=== PATIENT | female | born 1955 | race Caucasian/White ===

== ENCOUNTER → 2018-10-09 | Outpatient (CLI) | payer OTHER ==
[~2018-10-09] VITALS: Ht 165.1 cm; Wt 78.0 kg
[~2018-10-09] MED LIST: ASPIR 8181 M1 PO; CALCIUM-MAGNES1 EAC2 PO; CELEXA20 MG PO; CENTRUM SILVER1 EAC4 PO; COZAAR 50 MG TA50 M1 PO; ESTRADIOL 1 MG T1 M1 PO; FISH OIL 1,001000 M2 PO; FOLIC ACID1 MG PO; OMEPRAZOLE40 MG PO; POTASSIUM GLUCONATE; TRAMADOL 50 MG50 MG PO; VITAMIN C WIT1000 MG PO; XARELTO20 MG PO
[2018-10-09 09:49] LABS: HEMATOCRIT 35.7 % (37.0-47.0); HEMOGLOBIN 11.8 gm/dL (12.0-15.0); MCH 30.2 pg (26.0-34.0); MCV 91.6 fL (80.0-100.0); MPV 8.2 fl. (7.2-11.1); RBC 3.9 mil/uL (4.20-5.00); RDW-CV 14.1 % (10.5-14.5); WBC 4.7 thou/uL (4.0-11.0)
[2018-10-09 09:55] LABS: CALCIUM 9.3 mg/dL (8.5-10.1); POTASSIUM 3.7 mmol/L (3.5-5.1)
[2018-10-09 10:10] LABS: PROTIME 10.7 Seconds (9.20-11.50)
[2018-10-09 12:20] VITALS: BP 116/65
[2018-10-09 12:33] VITALS: BP 114/61
[2018-10-09 12:47] VITALS: BP 121/61
[2018-10-09 13:00] VITALS: BP 121/87
--- NOTE | 2018-10-09 13:15 | EKG ---
[place] [address] ELECTROCARDIOGRAM REPORT Name: CHARMAINEDAYANARA Room: [facility]#: [id number] Admission: 10/09/18 Attend Phys: Edenilson Cronin MD, F Discharge: Date of : 51 Report #: [id number] THIS REPORT FOR: //name// [facility] Test Date: 2018-10-09 Test Time: 09:54:42 Pat Name: DAYANARA MONTANO Department: Room: Gender: F Manager Philosophy: : 1955 Requested By: Edenilson Cronin Order Number: [id number] Bean MD: Edenilson Cronin Measurements Intervals [place] Rate: 70 P: -87 VT: 123 QRS: -21 QRSD: 101 T: -1 QT: 456 QTc: 493 Interpretive Statements atrial tachycardia Borderline left axis deviation Abnormal R-wave progression, early transition Abnormal T, consider ischemia, anterior leads No previous ECG available for comparison Electronically Signed On 10-09-2018 13:15:29 CDT by Edenilson Cronin [email or web address] <ELECTRONICALLY SIGNED> By: Edenilson Cronin MD, [facility] 10/09/18 1315 [id number] Edenilson Cronin MD, FAC /EPI
[2018-10-09 13:30] VITALS: BP 120/70
[2018-10-09 14:00] VITALS: BP 121/59
--- NOTE | 2018-10-09 14:23 | EKG ---
[place] [address] ELECTROCARDIOGRAM REPORT Name: DAYANARA MONTANO Room: [facility]#: [id number] Admission: 10/09/18 Attend Phys: Edenilson Cronin MD, F Discharge: Date of : 51 Report #: [id number] THIS REPORT FOR: //name// [facility] Test Date: 2018-10-09 Test Time: 13:13:49 Pat Name: DAYANARA MONTANO Department: Room: Gender: F [employer]: : 1955 Requested By: Edenilson Cronin Order Number: [id number] Bean MD: Edenilson Cronin Measurements Intervals [place] Rate: 74 P: AK: QRS: -33 QRSD: 118 T: -24 QT: 447 QTc: 496 Interpretive Statements Afib/flut and V-paced complexes No further rhythm analysis attempted due to paced rhythm Incomplete right bundle branch block Compared to ECG 10/09/2018 09:54:42 ventricular paced beats noted Electronically Signed On 10-09-2018 14:23:28 CDT by Edenilson Cronin [email or web address] <ELECTRONICALLY SIGNED> By: Edenilson Cronin MD, [facility] 10/09/18 1423 1313 1313 Edenilson Cronin MD, [facility] /EPI
--- NOTE | 2018-10-09 16:40 | CARD ---
[address] [address] CARDIAC CATH REPORT Name: DAYANARA MONTANO Room: [facility] Miller#: [id number] Admission: 10/09/18 Attend Phys: Edenilson Cronin MD, F Discharge: Date of : 51 Report #: [id number] THIS REPORT FOR: //name// APPROVED REPORT Study performed: 10/09/2018 10:00:16 Patient Status: Out-Patient Room #: Event Personnel: Dr Cronin Exam: Insertion of Single Chamber Permanent Pacemaker Indications: Sick Sinus Syndrome/Tachy Ulises Syndrome The patient is a 63 year-old female with a history of Dyspnea. Patient Info Anticoagulant Therapy: xarelto Conscious Sedation Start time: 10:28 End Time: 11:32 Fentanyl 50.0 mcg Versed 2.0 mg Implanted Devices: permanent single chamber mri compatible pacemaker generator and lead Procedure The patient underwent informed consent. We discussed the details of the procedure including the risks, which include, but not limited to bleeding, infection, vascular damage, cardiac perforation, and pneumothorax. She understood these risks and was willing to proceed. As such, she was brought to the EP/Cardiac Catheterization laboratory in a fasting and sedated state and prepped and draped in a sterile fashion, received IV antibiotics prior to initiation of the procedure and a venogram was performed showing patency of the left axillary vein. The patient underwent conscious sedation, with no related complications. The patient was brought to the EP/Cardiac Catheterization laboratory and the left chest and shoulder were prepped and draped in a sterile manner. During this case, Fluoroscopy and low osmolar contrast were used for imaging. The left subclavian region was infiltrated with 2% Lidocaine subcutaneous anesthesia. A transverse incision was made in the [place] [address] CARDIAC CATH REPORT Name: DAYANARA MONTANO Room: [facility]#: [id number] Admission: 10/09/18 Attend Phys: Edenilson Cronin MD, F Discharge: Date of : 51 Report #: [id number] The subcutaneous pocket was formed via blunt dissection. Percutaneous venous access was achieved and an introducer sheath was inserted into the left Subclavian vein. Through the introducer sheaths the ventricular lead wire was positioned in the right atrial appendage and right ventricular apex respectively. Utilizing fluoroscopic guidance, the ventricular lead wire was advanced over the wires and positioned in the right atria and right ventricle respectively. Capturing and sensing thresholds were verified. Electrode Parameters R Wave: 28 mv Ventricular Threshold: 0.6v @ 0.4 ms Ventricular Resistance: 400 ohm Single Chamber The ventricular lead was attached to the appropriate receptacle on the pulse generator and set screws firmly tightened to insure adequate contact and stability. The lead and pulse generator were placed into the subcutaneous pocket. Sharp and sponge counts were confirmed to be correct. At this time the pocket was closed subcutaneously with a 0 Vicryl and the skin was closed with a 4.0 Vicryl. The operative site was dressed in sterile fashion with skin affix and the patient was transferred to the floor in stable condition. Complications The patient tolerated the procedure well and there were no complications associated with the procedure. The pacemaker pocket was irrigated with d-stat flowable prior to placing the pacemaker generator in the pocket. Findings Specimens Removed: N/A Estimated Blood Loss: 5 cc Conclusion successful placement of a single chamber pacemaker and lead. <ELECTRONICALLY SIGNED> By: Edenilson Cronin MD, FACC 10/09/18 1640 1640 [id number] Cronin MD, FACC /INF
--- NOTE | 2018-10-09 16:44 | H ---
[address] [address] HISTORY AND PHYSICAL Name: DAYANARA MONTANO [id number] Admission: 10/09/18 Attend Phys: Edenilson Cronin MD, F Discharge: Date of : 51 Report #: [id number] THIS REPORT FOR: //name// CC: DR ALBERTO Burkett DATE OF SERVICE: 10/09/2018 HISTORY OF PRESENT ILLNESS: The patient is a 63-year-old single white female who I was asked to see in the hospital today after she had an episode of bradycardia. The patient notes that she had a heart murmur as a child. She was found to have evidence of an ASD and mitral regurgitation. When she was 10 years old, she underwent patch repair of the ASD and mitral valvuloplasty in [place], [place]. She has done well since that time. I have seen her in Cardiology Clinic after she moved to the [facility] a couple of years ago. Echocardiogram last year showed normal left ventricular function and a negative bubble study suggesting no residual shunt and only mild mitral regurgitation. She is found to be in permanent atrial fibrillation with a variable ventricular response rate. I recommended chronic anticoagulation. I last saw her in clinic in 05/2018. Recently, she noticed increasing dyspnea on exertion and fatigue. She denied any chest pain, syncope. She notes occasional irregular heartbeat, and she has had a cough. She saw my nurse practitioner on 08/31. She wore an event recorder that showed persistent atrial fibrillation. She was noted to have pauses up to 2.6 seconds of duration. She is felt to have symptomatic bradycardia, and I recommended a permanent pacemaker. PAST MEDICAL HISTORY: Otherwise significant for cholecystectomy, hysterectomy, hypertension, hiatal hernia. MEDICATIONS: Consist of Celexa, Claritin, Prozac. She has been off Xarelto for 4 days, losartan. ALLERGIES: She has no known drug allergies. FAMILY HISTORY: Her grandmother had heart disease. SOCIAL HISTORY: She is , lives on a farm outside [place], [place]. No smoking or alcohol abuse. REVIEW OF SYSTEMS: She has had no history of stroke or asthma. She has had a hiatal hernia. No history of peptic ulcer disease, liver disease, kidney disease, cancer, psychiatric illness, chronic skin condition. PHYSICAL EXAMINATION: GENERAL: [place] [address] HISTORY AND PHYSICAL Name: DAYANARA MONTANO Room: [facility]#: [id number] Admission: 10/09/18 Attend Phys: Edenilson Cronin MD, F Discharge: Date of : 51 Report #: [id number] VITAL SIGNS: Blood pressure 120/90, pulse 60 and irregular. HEENT: She is anicteric, conjunctiva pink. Mucous membranes moist. NECK: Veins nondistended. No carotid bruits. Neck supple. CHEST: Clear to auscultation. CARDIOVASCULAR: Irregular rhythm, grade 2 systolic ejection murmur. ABDOMEN: Soft. EXTREMITIES: Had no edema. Dorsalis pedis was 2+ bilaterally. SKIN: Warm, dry. NEUROLOGIC: Nonfocal. IMPRESSION AND RECOMMENDATIONS: 1. Atrial fibrillation. Recommend chronic anticoagulation. 2. Sick sinus syndrome. The patient with symptomatic bradycardia with pauses up to 2.6 seconds of duration. Recommend permanent pacemaker. 3. Permanent atrial fibrillation. The patient has been chronically anticoagulated. 4. Hypertension. The patient on an ARB. 5. Previous repair of an ASD with a patch. 6. Previous mitral valvoplasty. No significant murmur noted at this time. <ELECTRONICALLY SIGNED> By: Edenilson Cronin MD, FACC 10/09/18 1644 1008 [id number] Cronin MD, FACC /nt
== END | disposition home or self-care (01) ==
LOC: M.CL 09:01
PROVIDERS: Internal Medicine Cardiovascular Disease
DX: I49.5 Sick sinus syndrome (principal); I48.91 Unspecified atrial fibrillation; I48.92 Unspecified atrial flutter; I10 Essential (primary) hypertension; Z90.49 Acquired absence of other specified parts of digestive tract; Z87.891 Personal history of nicotine dependence; Z82.49 Family history of ischemic heart disease and other diseases of the circulatory system; Z79.899 Other long term (current) drug therapy; Z79.01 Long term (current) use of anticoagulants; Z90.710 Acquired absence of both cervix and uterus; Z98.890 Other specified postprocedural states

== ENCOUNTER → 2019-04-20 | Outpatient (CLI) | payer MEDICARE, OTHER | LOC: M.MRI 12:38 | DX: S83.281A Other tear of lateral meniscus, current injury, right knee, initial encounter (principal); S83.241A Other tear of medial meniscus, current injury, right knee, initial encounter; X58.XXXA Exposure to other specified factors, initial encounter; Y93.89 Activity, other specified; Y92.89 Other specified places as the place of occurrence of the external cause; Y99.8 Other external cause status ==

== ENCOUNTER → 2019-04-27 | Outpatient (CLI) | payer OTHER | LOC: M.CT 09:30 | DX: Z13.6 Encounter for screening for cardiovascular disorders (principal) ==

== ENCOUNTER → 2020-02-13 | Outpatient (CLI) | payer MEDICARE, OTHER | LOC: M.MRI 02-08 14:30 | PROVIDERS: ATTEND Orthopaedic Surgery Sports Medicine | DX: S83.282A Other tear of lateral meniscus, current injury, left knee, initial encounter (principal); S83.242A Other tear of medial meniscus, current injury, left knee, initial encounter; M71.22 Synovial cyst of popliteal space [Baker], left knee; X58.XXXA Exposure to other specified factors, initial encounter; Y93.89 Activity, other specified; Y92.89 Other specified places as the place of occurrence of the external cause; Y99.8 Other external cause status ==

== ENCOUNTER → 2020-03-24 | Outpatient (CLI) | payer MEDICARE, OTHER ==
--- NOTE | 2020-03-24 13:36 | 2DMMODE ---
[place] [address] 2 D/M-MODE ECHOCARDIOGRAM Name: DAYANARA MONTANO Room: [facility]#: [id number] Admission: 03/24/20 Attend Phys: Diana Rocha RN Discharge: Date of : 51 Date of Service: 03/24/20 1335 Report #: [id number] THIS REPORT FOR: cc: Kenji Burkett Steve T. DO Blick,Edenilson Rodríguez MD [facility] ~ APPROVED REPORT Study performed: 03/24/2020 10:54:02 EXAM: Comprehensive 2D, Doppler, and color-flow Echocardiogram Patient Location: Out-Patient BSA: 1.87 HR: 81 bpm BP: 115/70 mmHg Other Information Study Quality: Fair Indications Mitral Valve Disease Hx. of ASD repair and Mitral valve repair 2D Dimensions IVSd: 10.77 (7-11mm) LVOT Diam: 20.17 (18-24mm) LVDd: 42.07 mm PWd: 9.78 (7-11mm) Ascending Ao: 30.87 (22-36mm) LVDs: 26.36 (25-40mm) Aortic Root: 23.35 mm Volumes Left Atrial Volume (Systole) LA ESV Index: 19.60 mL/m2 Aortic Valve AoV Peak Andrew.: 1.03 m/s AO Peak Gr.: 4.27 mmHg LVOT Max P.28 mmHg AO Mean Gr.: 2.60 mmHg LVOT Mean P.27 mmHg LVOT Max V: 0.75 m/s AO V2 VTI: 19.03 cm LVOT Mean V: 0.53 m/s AILIN (VTI): 2.25 cm2 LVOT V1 VTI: 13.40 [place] [address] 2 D/M-MODE ECHOCARDIOGRAM Name: DAYANARA MONTANO Room: [facility]#: [id number] Admission: 03/24/20 Attend Phys: Diana Rocha RN Discharge: Date of : 51 Date of Service: 03/24/20 1335 Report #: [id number] E/A Ratio: 2.05 MV Decel. Time: 161.61 ms MV E Max Andrew.: 1.39 m/s MV PHT: 46.87 ms MVA (PHT): 4.69 cm2 TDI E/Lateral E': 15.44 E/Medial E': 15.44 Medial E' Andrew.: 0.09 m/s Lateral E' Andrew.: 0.09 m/s Pulmonary Valve PV Peak Andrew.: 0.68 m/s PV Peak Gr.: 1.84 mmHg Tricuspid Valve RAP Estimate: 5.00 mmHg TR Peak Gr.: 16.47 mmHg RVSP: 21.47 mmHg PA Pressure: 21.47 mmHg Left Ventricle The left ventricle is normal size. paradoxical septal motion consistent with previous sternotomy There is normal left ventricular wall thickness. Left ventricular systolic function is normal. The left ventricular ejection fraction is within the normal range. LVEF is 50-55%. This study is not technically sufficient to allow evaluation of the LV diastolic function due to atrial fibrillation. Right Ventricle The right ventricle is normal size. The right ventricular systolic function is normal. Pacemaker lead is present in the right ventricle. Atria The left atrium size is normal. Pacemaker lead is present in the right atrium. The right atrium size is normal. Aortic Valve The Aortic valve is sclerotic. No aortic regurgitation is present. There is no aortic valvular stenosis. Mitral Valve Annuloplasty ring is noted in the mitral position. Mild mitral regurgitation. No evidence of mitral valve stenosis. Tricuspid Valve The tricuspid valve is normal in structure[place] [address] 2 D/M-MODE ECHOCARDIOGRAM Name: CHARMAINEDAYANARA Room: [facility]#: [id number] Admission: 03/24/20 Attend Phys: Diana Rocha RN Discharge: Date of : 51 Date of Service: 03/24/20 1335 Report #: [id number] regurgitation. Pulmonic Valve The pulmonary valve is normal in structure. There is trace pulmonic valvular regurgitation. Great Vessels The aortic root is normal in size. IVC is normal in size and collapses >50% with inspiration. Pericardium There is no pericardial effusion. <Conclusion> LVEF is 50-55%. Annuloplasty ring is noted in the mitral position. Mild mitral regurgitation. The Aortic valve is sclerotic. <ELECTRONICALLY SIGNED> By: Edenilson Cronin MD, [facility] 03/24/20 1335 1335 1335 Edenilson Cronin MD, FACC /INF
== END ==
LOC: M.CRD 10:45
PROVIDERS: ATTEND Registered Nurse
DX: I08.3 Combined rheumatic disorders of mitral, aortic and tricuspid valves (principal); I25.10 Atherosclerotic heart disease of native coronary artery without angina pectoris

== ENCOUNTER 2020-10-13 01:51 | Emergency (ER) | payer MEDICARE, OTHER ==
[~2020-10-13] VITALS: Ht 167.6 cm; Wt 77.1 kg
[2020-10-13] MEDS ORDERED: DESYREL150 MG PO (02:33)
[2020-10-13] MEDS ORDERED: FLEXERIL PO (02:35)
[2020-10-13] MEDS ORDERED: HYDROCODON-ACE1 EAC7 PO (03:44)
[2020-10-13 04:09] VITALS: BP 145/80
== END 2020-10-13 04:29 | disposition home or self-care (01) ==
LOC: M.ERS 01:51
DX: M25.562 Pain in left knee (principal); I48.91 Unspecified atrial fibrillation; Z90.710 Acquired absence of both cervix and uterus